=== PATIENT | female | born 1975 | race Caucasian/White ===

== ENCOUNTER → 2020-01-22 16:03 | Outpatient (CLI) | payer OTHER, SELFPAY ==
--- NOTE | ~2020-01-22 | MM_ITS ---
EXAMINATION: MM screening [facility] w [facility]ly HISTORY: Screening TECHNIQUE: Craniocaudal and mediolateral oblique 3-D tomosynthesis images were obtained and synthetic 2-D images were generated. CAD analysis was submitted and interpreted. COMPARISON: Comparison to multiple prior studies sequentially, with oldest reviewed study dated 07/28. BREAST PARENCHYMAL COMPOSITION: There are scattered areas of fibroglandular density. FINDINGS: There is no evidence of suspicious mass, calcification, or architectural distortion to sugg est malignancy in either breast. There has been no suspicious interval change. IMPRESSION: 1. No mammographic evidence of malignancy. 2. Recommend routine screening mammography in one year. BI-RADS Category 1: Negative Reviewed, dictated and finalized at location A.
== END ==
DX: Z12.31 Encounter for screening mammogram for malignant neoplasm of breast (principal)
CPT/HCPCS: 77063; 77067

== ENCOUNTER → 2021-02-10 15:46 | Outpatient (CLI) | payer OTHER, SELFPAY ==
--- NOTE | ~2021-02-10 | MM_ITS ---
EXAMINATION: MM screening [facility] w charly HISTORY: Screening TECHNIQUE: Craniocaudal and mediolateral oblique 3-D tomosynthesis images were obtained and synthetic 2-D images were generated. CAD analysis was submitted and interpreted. COMPARISON: Comparison to multiple prior studies sequentially, with oldest reviewed study dated 07/28. BREAST PARENCHYMAL COMPOSITION: The breasts are almost entirely fatty. FINDINGS: There is no evidence of suspicious mass, calcification, or architectural distortion to sugg est malignancy in either breast. There has been no suspicious interval change. IMPRESSION: 1. No mammographic evidence of malignancy. 2. Recommend routine screening mammography in one year. BI-RADS Category 1: Negative Reviewed, dictated and finalized at location A.
== END ==
DX: Z12.31 Encounter for screening mammogram for malignant neoplasm of breast (principal)
CPT/HCPCS: 77063; 77067

== ENCOUNTER → 2022-07-07 15:56 | Outpatient (CLI) | payer OTHER, SELFPAY ==
--- NOTE | ~2022-07-07 | MM_ITS ---
EXAMINATION: MM screening [facility] BI w charly HISTORY: Screening mammogram TECHNIQUE: Craniocaudal and mediolateral oblique 3-D tomosynthesis images were obtained and synthetic 2-D images were generated. CAD analysis was submitted and interpreted. COMPARISON: 02/10/2021, 01/22/2020, 06/08/2019 BREAST PARENCHYMAL COMPOSITION: The breasts are almost entirely fatty. FINDINGS: No suspicious mass, calcification, or architectural distortion are identified in either lynda ast to suggest malignancy. There has been no suspicious interval change. IMPRESSION: 1. No mammographic evidence of malignancy. 2. Recommend routine screening mammography in one year. BI-RADS Category 1: Negative Reviewed, dictated and finalized at location A. OHISTORIAN
== END ==
PROVIDERS: PCP Family Medicine
DX: Z12.31 Encounter for screening mammogram for malignant neoplasm of breast (principal)
CPT/HCPCS: 77063; 77067

== ENCOUNTER 2023-01-11 08:01 | Outpatient (CLI) | payer OTHER, SELFPAY ==
--- NOTE | 2023-01-11 08:05 | ECG_ITS ---
Measurements Intervals [place] Rate: 71 P: -13 MS: 149 QRS: 16 QRSD: 98 T: 47 QT: 410 QTc: 446 Interpretive Statements SINUS RHYTHM LOW QRS VOLTAGE IN PRECORDIAL LEADS [QRS DEFLECTION < 1.0 mV IN CHEST LEADS] POSSIBLE RIGHT VENTRICULAR CONDUCTION DELAY [RSR (QR) IN V1/V2] SIGNIFICANT BASELINE ARTIFACT NO PREVIOUS ECG AVAILABLE FOR COMPARISON Electronically Signed On 01-11-2023 13:56:30 CDT by Sarai Arriaga M.D.
[2023-01-11 08:45] LABS: Hematocrit 40.6 % (37.0-47.0); Hemoglobin 13.2 g/dL (12.0-15.0)
== END 2023-01-11 08:02 | disposition home or self-care (01) ==
LOC: ANHSURGERY 08:05
PROVIDERS: Anesthesiology; PCP Family Medicine; Visit Provider Surgery Plastic and Reconstructive Surgery
DX: Z41.1 Encounter for cosmetic surgery (principal)
CPT/HCPCS: 36415; 85014; 85018; 93005

== ENCOUNTER 2023-01-18 01:12 | Day surgery (SDC) | payer OTHER, SELFPAY ==
[2023-01-07 13:39] VITALS: BMI 29.5
--- NOTE | 2023-01-07 13:43 | PC.NURSE ---
Report to the Outpatient Waiting Room, entrance under the green pavilion located off [facility], at time 6:00 on date 01/18/23. Planned Procedure Time: 7:30. Time changes happen often and if your time is changed the preop area will call you the afternoon before. - You and your visitor will be asked to self-screen and do not enter if you have any COVID symptoms. - A mask is optional within the hospital at this time. Patients may have clear liquids (water, carbonated beverages, clear teas, apple juice) until 3 hours prior to surgery with a maximum of 20 ounces. - No food from midnight until time of surgery Take the following medications with a SIP of water the morning of surgery: SERTRALINE DO NOT STOP ANY OF YOUR OTHER PRESCRIPTION MEDICATIONS PRIOR TO SURGERY ?EXCEPT THE FOLLOWING Medications to discontinue per physician: VITAMINS/SUPPLEMENTS Date to take last dose: 01/14/23 PT HAS ALREADY STOPPED TAKING WEGOVY, PHENTERMINE, AND SOME VITAMINS/SUPPLEMENTS Please no make-up, nail scottish, hairspray, perfume, deodorant, or body powder the day of surgery. No jewelry (including any body piercings) or valuables the day of surgery, leave them at home. Please take a shower or bath the night before, or the morning of, surgery with an antibacterial soap. Wear comfortable, loose fitting clothing. - Jewelry must be removed prior to entering the operating room. Rings and piercings that are not removed may be cut off. - The hospital will not accept responsibility for valuables. - Please leave all valuables, including medications, at home the day of surgery. If you are going home after surgery, a licensed regional company flatbed truck driver must drive you home. - NO public transportation without another adult if you receive anesthesia. - We recommend that an adult stay with you for 24 hours following discharge. - We also recommend that you do not drive, make important decision, drink alcoholic beverages, or take any drugs that were not prescribed by your health care provider for at least 24 hours after your discharge time. Follow any additional instructions given to you from your surgeon. If you or anyone in your household have experienced Covid symptoms in the past week, please notify your surgeon or the nurse liaison at the phone number below for possible testing. Telephone instructions given to PT - BHARATHI REECE and asked if any additional questions and then verbalized understanding. Patient advised to call surgeon office or pre surgery nurse liaison [phone] if any additional questions.
[2023-01-18] VITALS (10 sets, daily range): BP systolic 90–117; BP diastolic 53–77; PULSE 63–78; RESP 14–18; TEMP 36.4–37.3; O2SAT 92–100
[2023-01-18 07:33] LABS: Urine Cotinine NEGATIVE
--- NOTE | 2023-01-18 08:40 | WPDHPUPDATE1 ---
History and Physical Update Update Date/Time: 01/18/23 08:40 History and Physical has been reviewed, including an updated exam of the patient. There are NO changes in the patient's condition. Risks, benefits, and alternatives have been discussed and questions answered. Patient agrees to proceed with procedure.
--- NOTE | 2023-01-18 08:40 | W.PM.PROC2 ---
Procedure Note - Detailed Date of Procedure 01/18/23 Pre-op Diagnosis skin laxity Post-op Diagnosis Same Procedure Performed Tatiana abdominoplasty with suction lipectomy Surgeon Alex Grijalva MD Anesthesia General Findings Tissue removed: 3646 grams Lipoaspirate: 2500 cc Description of Procedure They are here today for abdominoplasty. Previously and again today the risks, benefits, alternatives were discussed in extensive detail. I wanted them to be very realistic about the risks involved as well as expectations. We discussed aftercare and what to monitor for. I was very upfront about the risks of wound breakdown leading to loss of skin, open wounds, and need for additional procedures with permanent abdominal deformity. We discussed DVT/PE risks and management. Made sure answered all of their questions to their satisfaction today and consent was obtained. They were marked in the preoperative holding area with their verification. The patient was taken to the operating room placed supine on the operating table. Anesthesia was provided by anesthesiology. A Pepper catheter was started. They were prepped and draped in a standard sterile fashion. A surgical time-out was taken. I placed the patient in a flexed position to verify the upper and lower markings would reach. I then placed supine. A thorough abdominal examination was completed. Stab incisions were made and tumescent solution infiltrated. Once adequate time was allowed for hemostasis a 5mm basket cannula and 3mm cannula were utilized to complete suction lipectomy based on S.A.F.E. technique in multiple planes and passes. There were turned to bilateral lateral decubitus position with care taken to protect them for injury during this process. Suction lipectomy continued to result based on pre-operative planning, intra-operative observation, and rolling pinch test which were in full agreement. A 10 blade was used to make the vertical resection. I continued dissection down to the level of fascia. A 10 blade was used to make the upper incision. I then again flexed the bed to verify the upper skin flap would reach the lower markings without tension. Once verified I placed her supine once again and a 10 blade used to make the lower incision. I elevated up to level the umbilicus and left the umbilicus intact on a well-vascularized stalk. The intervening tissue was removed. A 2 mm blunt cannula with 0.5% bupivicaine was injected deep to the fascia bilaterally. I plicated the diastasis recti using 0 PDO stratafix barbed suture. This was in 2 separate layers using 2 separate sutures as well. I repaired around the umbilicus leaving plenty of room for well-vascularized stalk of the umbilicus with 2-0 PDS. I also repaired lateral to the rectus using two layers of 0 PDO stratafix. The patient was flexed and starting from superior to inferior began plication using 2-0 Vicryl to obliterate all space in a standard progressive tension fashion closing the vertical incision. At the umbilicus I marked out the location of the skin and inset this with 3-0 Monocryl and 4-0 Vicryl. I continued the remainder of the plication using 2-0 Vicryl until I reached my lower planned scar line. I trimmed any excess skin of the upper flap making sure this was a tension-free closure. A single 15 Jennifer drain placed (not sutured). I then approximated using a 3 point suture with 2-0 Vicryl followed by 3-0 stratafix ,running subcuticular 4-0 Monocryl, and tissue glue. Vertical closed with 3-0 monocryl, 4-0 Moncryl, and tissue glue. Fluffs and an abdominal binder were placed. The patient was transferred to the bed in a flexed position. Awoken and taken to the PACU without difficulty. All instrument and sponge counts were correct at the end of the case. Estimated Blood Loss 200 Drains Yes (15 jennifer) Packing No Pathology None sent Complications No immediate complications Condition Stable Dispos
--- NOTE | 2023-01-18 08:41 | WPDANESEPPF ---
Anes - Initial Pre Proc Eval Procedure: Operation Date: 01/18/23 09:00 Proposed Procedures p Kari Padilla Abdominoplasty with Liposuction - Alex Grijalva MD Date/Time: 01/18/23 08:41 Surgeon: Alex Grijalva MD Pre Op Diagnosis: skin laxity Patient Data Age: 47 Gender: F Height: 1.68 m Weight: 83.9 kg Last Vital Signs Temp 37.3 C 01/18/23 07:39 Pulse 67 01/18/23 07:39 Resp 16 01/18/23 07:39 BP 117/77 01/18/23 07:39 Pulse Ox 100 01/18/23 07:39 O2 Del Method Room Air 01/18/23 07:39 Allergies Allergy/AdvReac Type Severity Reaction Status Date / Time minocycline Allergy Severe Itching Verified 01/18/23 07:41 Home Medications Medication Instructions Recorded Confirmed Type black cohosh 200 mg capsule 200 mg PO HS 01/07/23 01/18/23 History cetirizine 10 mg tablet (Zyrtec) 10 mg PO DAILY 01/07/23 01/18/23 History cholecalciferol (vitamin D3) 10 10 mcg PO DAILY 01/07/23 01/18/23 History mcg (400 unit) tablet (Vitamin D3) medroxyprogesterone 150 mg/mL 150 mg IM [id number] 01/07/23 01/18/23 History intramuscular suspension (Depo-Provera) multivitamin 1 tablet PO DAILY 01/07/23 01/18/23 History multivitamin,Ca,mineral-folic 1 tablet PO HS 01/07/23 01/18/23 History acid-herbal no.157 400 mcg tablet (Estroven Maximum Strength) phentermine 37.5 mg capsule 37.5 mg PO DAILY 01/07/23 01/18/23 History pravastatin 10 mg tablet 10 mg PO HS 01/07/23 01/18/23 History semaglutide (weight loss) 2.4 2.4 mg subcut WEEKLY 01/07/23 01/18/23 History mg/0.75 mL subcutaneous pen injector (Wegovy) sertraline 100 mg tablet 100 mg PO DAILY 01/07/23 01/18/23 History topiramate 25 mg tablet 100 mg PO DAILY 01/07/23 01/18/23 History vitamin B12 1,000 mcg-folic acid 1 rusty sublingual DAILY 01/07/23 01/18/23 History 400 mcg sublingual lozenge Laboratory Tests 01/18/23 07:17 Cotinine Negative Patient hx anesthesia problems: none Family hx anesthesia problems: none Results Review: All pre-operative results and documents have been reviewed as part of the pre-operative evaluation. [facility] Social History Social History Smoking status: Never smoker Alcohol intake: never Substance use: never Substance use type: does not use Living arrangements: with family Spiritual care concerns: No Anes - Eval Final PreProcedure Day of Procedure 01/18/23 08:41 Patient weight: overweight Heart: regular rate and rhythm Lungs: clear to auscultation Airway: Mallampati scale class II Neurological: alert and oriented Last oral intake: >/= 8 hours ASA classification: II Emergent: no Anesthetic plan: proceed Anesthesia type and monitoring: general ETT and standard monitoring Results Review: All pre-operative results and documents have been reviewed as part of the pre-operative evaluation. Informed Consent: The patient's anesthetic plan and its attendant risks and benefits were discussed with the patient/family/POA. Questions were solicited and answers provided to the satisfaction of the patient/family/POA.
[2023-01-18] MEDS: SCOPOLAMINE 1.5 MG PATCH TRANSDERM (08:45)
[2023-01-18] MEDS: LACTATED RINGERS 1,000 ML 30 ML IV CONT ×2 (08:48→13:50)
[2023-01-18] MEDS: ceFAZolin 2 GM/D5W 50 ML 2 GM/50 ML BAG IVPB (09:10)
[2023-01-18] MEDS: TRANEXAMIC ACID 1,000MG/ISO100 1,000 MG/100 ML BAG 200 MG IVPB (09:30)
--- NOTE | 2023-01-18 13:52 | SUR.PHASEI ---
Patient had a Pepper during surgery. It was discontinued upon arrival to PACU.
--- NOTE | 2023-01-18 14:06 | SUR.PHASEI ---
1405: Simple mask removed.
[2023-01-18] MEDS: oxyCODONE HCL (*CRX) 5 MG TAB IR PO (15:27)
[2023-01-18] MEDS: ONDANSETRON INJ 4 MG/2 ML VIAL IV PUSH (15:59)
== END 2023-01-18 16:51 | disposition home or self-care (01) ==
PROVIDERS: PCP Family Medicine; Visit Provider Surgery Plastic and Reconstructive Surgery
PROC: (CPT 15830; principal; 2023-01-18 09:00)
DX: Z41.1 Encounter for cosmetic surgery (principal); L57.4 Cutis laxa senilis; Z79.899 Other long term (current) drug therapy
CPT/HCPCS: 15830; 15847; 15877; 80307; A9270; J0171; J0690; J1100; J1170; J2250; J2405; J2704; J2710; J3010; J7120

== ENCOUNTER 2023-07-08 08:02 | Emergency (ER) | payer OTHER, SELFPAY ==
--- NOTE | 2023-07-08 08:11 | ED.SKABFB ---
HPI - Skin/Abscess/Foreign Bdy General Chief complaint: Skin/Abscess/Foreign Body Stated complaint: Ingrown Hair on Eyebrow Time Seen by Provider: 07/08/23 08:25 Source: patient, RN notes reviewed and old records reviewed Mode of arrival: ambulatory Limitations: no limitations History of Present Illness HPI narrative: 48 year old female who presents to [facility] care with complaints of having ingrown hair in her left upper eyebrow starting on Tuesday and she pulled hair with tweezer. She states yesterday she noted swelling and redness to area under her left eyebrow and squeezed it and did get some purulent drainage from site. Patient reports tenderness to area and continues to have swelling and redness to area with small scab to area with no further drainage noted to area, no fevers noted. MD complaint: other (infected hair along left eyebrow tweezed it now clint red and swollen, pus yesterday) Treatments prior to arrival: attempted to drain pus at home Related Data Home Medications Medication Instructions Recorded Confirmed black cohosh 200 mg capsule 200 mg PO HS 01/07/23 07/08/23 cetirizine 10 mg tablet (Zyrtec) 10 mg PO DAILY 01/07/23 07/08/23 cholecalciferol (vitamin D3) 10 10 mcg PO DAILY 01/07/23 07/08/23 mcg (400 unit) tablet (Vitamin D3) medroxyprogesterone 150 mg/mL 150 mg IM [id number] 01/07/23 07/08/23 intramuscular suspension (Depo-Provera) multivitamin 1 tablet PO DAILY 01/07/23 07/08/23 multivitamin,Ca,mineral-folic 1 tablet PO HS 01/07/23 07/08/23 acid-herbal no.157 400 mcg tablet (Estroven Maximum Strength) phentermine 37.5 mg capsule 37.5 mg PO DAILY 01/07/23 07/08/23 semaglutide (weight loss) 2.4 2.4 mg subcut WEEKLY 01/07/23 07/08/23 mg/0.75 mL subcutaneous pen injector (Merlene) sertraline 100 mg tablet 100 mg PO DAILY 01/07/23 07/08/23 topiramate 25 mg tablet 100 mg PO DAILY 01/07/23 07/08/23 vitamin B12 1,000 mcg-folic acid 1 rusty sublingual DAILY 01/07/23 07/08/23 400 mcg sublingual lozenge rosuvastatin 40 mg tablet 40 mg PO DAILY 07/08/23 07/08/23 Allergies Allergy/AdvReac Type Severity Reaction Status Date / Time minocycline AdvReac Mild Itching Verified 07/08/23 08:06 Review of Systems Review of Systems: CONSTITUTIONAL: Denies fever, chills, or sweats. CARDIOVASCULAR: Denies chest pain, palpitations, or edema. RESPIRATORY: Denies cough or dyspnea. GASTROINTESTINAL: Denies abdominal pain, nausea, vomiting SKIN: Reports redness and swelling to tissue under left eyebrow, small scab area noted, did have some purulent drainage when she squeezed site yesterday. MUSCULOSKELETAL: Denies myalgia. NEUROLOGIC: Denies headache, numbness All systems reviewed & are unremarkable except as noted in HPI and below PMFSH Past Medical History Medical History (Updated 07/08/23 @ 09:02 by Michelle Henderson NP) Anxiety and depression Elevated cholesterol Surgical History Surgical History (Updated 07/08/23 @ 09:02 by Michelle Henderson NP) History of abdominoplasty History of eye surgery History of tonsillectomy Social History Social History Smoking status: Never smoker Alcohol intake: never Substance use: never Substance use type: does not use Living arrangements: with family Spiritual care concerns: No Comments At time of signature, agree with nursing past medical, surgical, social and family history. There is no relevant family history pertinent to the presenting complaint Exam Narrative: GENERAL: Well-appearing, well-nourished, and in no acute distress. HEAD: Normocephalic, atraumatic. EYES: PERRLA and EOMI. ENT: Nares clear, no rhinorrhea or epistaxis. Mucous membranes moist. NECK: Supple. no lymphadenopathy CHEST: Clear to auscultation. No respiratory distress. SAO2 100% on room air HEART: Regular rate and rhythm. No murmur heard. Normal peripheral pulses. ABDOMEN: Soft, nontender, nondistended, normal a
[2023-07-08 08:12] VITALS: BP 129/82; PULSE 86; RESP 16; TEMP 37; O2SAT 100
== END 2023-07-08 08:34 | disposition home or self-care (01) ==
PROVIDERS: Emergency Provider Registered Nurse; PCP Family Medicine
DX: L73.1 Pseudofolliculitis barbae (principal); E78.00 Pure hypercholesterolemia, unspecified; F41.9 Anxiety disorder, unspecified; F32.A Depression, unspecified
CPT/HCPCS: 99213; G0463

== ENCOUNTER 2023-09-12 12:05 | Outpatient (CLI) | payer OTHER, SELFPAY ==
--- NOTE | ~2023-09-12 | DEXA_ITS ---
Bone Density Report Name: BHARATHI REECE Age: 48 Sex: Female Ethnicity: White Date of : 1975 Indication: height loss; Referring Provider: EDMAR BOX Study: Bone densitometry was performed. Exam Date: September 12, 2023 Accession number: [id number] Bone Density: Region BMD T-score Z-score Classification AP Spine (L1-L4) 0.979 -0.6 -0.1 Normal Femoral Neck (Left) 0.741 -1.0 -0.5 Normal Total Hip (Left) 0.874 -0.6 -0.2 Normal Femoral Neck (Right) 0.705 -1.3 -0.8 Osteopenia Total Hip (Right) 0.844 -0.8 -0.5 Normal Total Hip Mean 0.859 -0.7 -0.4 Normal World Health Organization criteria for BMD impression classify patients as: Normal (T-score at or above -1.0), Osteopenia (T-score between -1.0 and -2.5), or Osteoporosis (T-score at or below -2.5). 10-year Fracture Risk: FRAX not reported because: Premenopausal woman Previous Exams: Region Exam Age BMD T-score BMD Change BMD Change Date g/cm2 vs Baseline vs Previous AP Spine(L1-L4) 09/12/2023 48 0.979 -0.6 -0.020 -0.020 06/08/2018 43 0.999 -0.4 Total Hip(Left) 09/12/2023 48 0.874 -0.6 -0.123 -0.123 06/08/2018 43 0.996 0.4 Total Hip(Right) 09/12/2023 48 0.844 -0.8 -0.118 -0.118 06/08/2018 43 0.963 0.2 *Denotes significance at 95% confidence level, LSC for AP Spine = 0.022 g/cm2, LSC for Total Hip = 0.027 g/cm2 Clinical Information Provided by Patient: Has used the following medications: Vitamin D, MTV, DEPO Patient maximum height was 67.0 No regular weight bearing exercise Does not regularly consume dairy products Drinks caffeinated beverages Onset of menses at age 18 Premenopausal Number of children 0 Missed period for more than 6 months in a row Impression: The patient's bone mass is within expected range for age, gender and ethnicity. No significant bone loss was observed. Discussion: BONE DENSITY IS WITHIN EXPECTED LIMITS FOR AGE, SEX AND RACE. Bone density is within expected limits for age, sex and race at all sites measured. The patient should follow a healthful lifestyle (good nutrition with adequate calcium and vitamin D, and appropriate weight-bearing exercise). Follow-Up: Consider repeating this study in 2 to 3 years to reassess this patient's status, or sooner if there is some new clinical indication. Reported by: EVELIA on 09/12/2023 12:55:00 PM. Reviewe
--- NOTE | ~2023-09-12 | MM_ITS ---
EXAMINATION: MM screening [facility] BI w charly HISTORY: Screening TECHNIQUE: Craniocaudal and mediolateral oblique 3-D tomosynthesis images were obtained and synthetic 2-D images were generated. CAD analysis was submitted and interpreted. COMPARISON: Comparison to multiple prior studies sequentially, with oldest reviewed study dated 02/10. BREAST PARENCHYMAL COMPOSITION: Not Dense: Breast are almost entirely fatty. FINDINGS: There is no evidence of suspicious mass, calcification, or architectural distortion to sugg est malignancy in either breast. There has been no suspicious interval change. IMPRESSION: 1. No mammographic evidence of malignancy. 2. Recommend routine screening mammography in one year. BI-RADS Category 1: Negative Reviewed, dictated and finalized at location A.
== END 2023-09-12 12:06 ==
LOC: MICIMG 12:06
PROVIDERS: PCP Nurse Practitioner Family
DX: Z12.31 Encounter for screening mammogram for malignant neoplasm of breast (principal); Z79.899 Other long term (current) drug therapy; M85.851 Other specified disorders of bone density and structure, right thigh
CPT/HCPCS: 77063; 77067; 77080

== ENCOUNTER 2024-09-17 14:05 | Outpatient (CLI) | payer OTHER, SELFPAY ==
--- NOTE | ~2024-09-17 | MM_ITS ---
EXAMINATION: MM screening [facility] BI w charly HISTORY: Screening TECHNIQUE: Craniocaudal and mediolateral oblique 3-D tomosynthesis images were obtained and synthetic 2-D images were generated. CAD analysis was submitted and interpreted. COMPARISON: Comparison to multiple prior studies sequentially, with oldest reviewed study dated 2020. BREAST PARENCHYMAL COMPOSITION: Not Dense. The breasts are almost entirely fatty. FINDINGS: There is no evidence of suspicious mass, calcification, or architectural distortion to sugg est malignancy in either breast. There has been no suspicious interval change. IMPRESSION: 1. No mammographic evidence of malignancy. 2. Recommend routine screening mammography in one year. BI-RADS Category 1: Negative Reviewed, dictated and finalized at location A.
== END 2024-09-17 14:06 | disposition home or self-care (01) ==
DX: Z12.31 Encounter for screening mammogram for malignant neoplasm of breast (principal)
CPT/HCPCS: 77063; 77067